=== PATIENT | female | born 1955 | race Caucasian/White ===

== ENCOUNTER 2016-07-25 07:15 | Day surgery (SDC) | payer OTHER ==
--- NOTE | 2016-07-25 11:54 | GI Report ---
REFERRING PHYSICIAN: Dr. Elizabeth Pfeiffer BATTERY TEST ENGINEER: Mason Navarro MD PROCEDURE MEDICATION: Propofol as per anesthesia. INDICATIONS: Patient is a 61-year-old woman who is referred for a screening. This is her first colonoscopy. She denies changes in bowel habits or bleeding. She denies a family history of colorectal cancer. PROCEDURE PERFORMED: Colonoscopy. PROCEDURE: An Olympus video colonoscope was advanced to the rectum. 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 In the base of the cecum, patient had a 3 to 4 mm flat polyp removed with a cold snare. On slow withdrawal, the cecum and ascending colon with no additional lesions noted. Transverse colon, again, redundancy and no obvious intraluminal lesions noted. Descending colon and sigmoid, again, redundancy. No obvious intraluminal lesions were noted. Retroflexion of the rectum was normal. Patient tolerated the procedure well. FINDINGS: Flat polyp removed from the cecum with a cold snare. RECOMMENDATIONS: 1. A high-fiber diet. 2. Consider re-looking at her colon in 5 years pending the pathology on the polyp. 3. She should see Dr. Pfeiffer in follow up. cc: Dr. Elizabeth ACEVEDO
== END 2016-07-25 07:16 ==
LOC: OPSURG 07:15
PROVIDERS: ATTEND Internal Medicine Gastroenterology
DX: Z12.11 Encounter for screening for malignant neoplasm of colon (principal); D12.0 Benign neoplasm of cecum
CPT/HCPCS: 45385; 88305; J2704; J7120; S1016

== ENCOUNTER 2016-08-04 13:20 | Outpatient (CLI) | payer OTHER ==
[2016-08-04 13:36] LABS: BASOPHILS % 0.5 (0.0-1.5); EOSINOPHILS % 1.1 % (0.0-6.8); MEAN CORPUSCULAR HEMOGLOBIN 31.1 pg (28.0-34.0); MEAN CORPUSCULAR VOLUME 91.7 fl (80.0-100.0); NEUTROPHILS # 5.7 # k/uL (1.4-7.7)
[2016-08-04 13:58] LABS: eGFR (African) > 60; eGFR (Non-African) > 60
--- NOTE | 2016-08-04 14:50 | Diagnostic Imaging Report ---
MJ HARDIN [facility] [address] [facility] [address] [place], [place]. [address] Report Submission Date: August 04, 2016 2:21:00 PM CDT Patient Study Name: AMARI SLADE Date: August 04, 2016 1:44:35 PM CDT Modality Type: CT\SR Gender: F Description: CT BRAIN W/O CONTRAST : 51 Institution: [facility] [place] [facility] Physician: MJ HARDIN CT brain noncontrast Date of study: 04 Aug 2016 CLINICAL HISTORY: CT HEAD W/O, DIZZINESS X2-3 DAYS WITH NAUSEA, POSITIIVE RHOMBERG, HX OF MS (Hx) / DIZZINESS, POSITIVE RHOMBERG, MS (DICOM Hx) TECHNIQUE: 5 mm contiguous axial images of the brain, noncontrast. FINDINGS: There is no evidence of intracranial mass effect, hemorrhage, or acute hydrocephalus. The lateral ventricles are symmetrical and the 4th ventricle is midline without shift. No acute brain parenchymal changes or extra-axial fluid collections are identified. Cerebral and cerebellar atrophy are present. There is white matter gliosis. 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 The calvarium is intact. The visualized sinuses and mastoid air cells are clear. There is intracranial vascular calcification IMPRESSION: No acute intracranial process. 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
== END 2016-08-04 13:21 ==
LOC: LAB 13:20
PROVIDERS: ATTEND Family Medicine
DX: R42 Dizziness and giddiness (principal)
CPT/HCPCS: 36415; 70450; 80053; 85025

== ENCOUNTER 2017-06-27 14:07 | Outpatient (CLI) | payer OTHER ==
[2017-06-27 14:28] LABS: BASOPHILS % 0.9 (0.0-1.5); EOSINOPHILS % 1.9 % (0.0-6.8); MEAN CORPUSCULAR HEMOGLOBIN 30.4 pg (28.0-34.0); MEAN CORPUSCULAR VOLUME 91.7 fl (80.0-100.0)
[2017-06-27 14:57] LABS: eGFR (African) > 60; eGFR (Non-African) > 60
== END 2017-06-27 14:08 ==
LOC: LAB 14:07
PROVIDERS: ATTEND Specialist
DX: Z79.899 Other long term (current) drug therapy (principal)
CPT/HCPCS: 36415; 80053; 85025

== ENCOUNTER 2017-07-20 16:28 | Outpatient (CLI) | payer OTHER | END 2017-07-20 16:30 | LOC: LAB 16:28 | PROVIDERS: ATTEND Specialist | DX: G35 Multiple sclerosis (principal); Z79.899 Other long term (current) drug therapy | CPT/HCPCS: 36415; 86711 ==